=== PATIENT | male | born 2000 | race African-American/Black ===

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

== ENCOUNTER 2021-01-27 09:10 | Emergency (ER) | payer OTHER ==
[~2021-01-27] VITALS: Ht 170.2 cm; Wt 63.0 kg
[~2021-01-27 09:10] MED LIST changes: +ALBU2.5V8 IH; +ALBU2.5V8 INH; +PRED50TA PO; -PROAIR HFA8.5 GM IH
[2021-01-27] MEDS ORDERED: IV NORMAL SALINE 1000ML BAG 1,000 ML IV ONE (10:30)
--- NOTE | 2021-01-27 10:51 | RAD ---
AP chest. HISTORY: Tachycardia, cough, fever, short of breath AP view was taken of the chest. There is a left perihilar infiltrate, mass is possible. Follow-up wou ld be of benefit. Right lung is clear. IMPRESSION: 1. Left perihilar infiltrate. Electronically signed by: Rah Jara MD (01/27/2021 10:49 AM) [facility]
[2021-01-27] MEDS ORDERED: ACETAMINOPHEN 500 MG TABLET PO ONE (11:00)
[2021-01-27] MEDS ORDERED: KETOROLAC 30 MG/ML VIAL. IVP ONE (11:00)
[2021-01-27 11:28] LABS: BASO % 0 % (0-3); EOS % 0 % (0-3); HEMATOCRIT 39.8 % (39.0-53.0); HEMOGLOBIN 13.3 g/dL (13.0-17.5); LYMPH % 8 % (24-48); MEAN CORPUSCULAR HEMOGLOBIN 27 pg (25-35); MEAN CORPUSCULAR HGB CONC 34 g/dL (31-37); MEAN CORPUSCULAR VOLUME 79 fL (79-100); MONO # 1.4 x10^3/uL (0.0-1.1); MONO % 10 % (0-9); NEUT # 10.6 x10^3/uL (1.8-7.7); NEUT % 81 % (31-73); PLATELET COUNT 260 x10^3/uL (140-400); RED BLOOD COUNT 5.03 x10^6/uL (4.30-5.70); RED CELL DISTRIBUTION WIDTH 14.7 % (11.5-14.5); WHITE BLOOD COUNT 13.1 x10^3/uL (4.0-11.0)
[2021-01-27] MEDS ORDERED: AMOXICILLIN/K CLAV 875/125MG TABLET. PO ONE (11:30)
[2021-01-27 11:33] LABS: CALCIUM 8.9 mg/dL (8.5-10.1); CREATININE 1.3 mg/dL (0.7-1.3); GFR 84.3; POTASSIUM 3.9 mmol/L (3.5-5.1)
[2021-01-27 11:39] LABS: ALBUMIN 3.6 g/dL (3.4-5.0); ALBUMIN/GLOBULIN RATIO 0.8 (1.0-1.7); TOTAL BILIRUBIN 0.3 mg/dL (0.2-1.0); TOTAL PROTEIN 7.9 g/dL (6.4-8.2)
--- NOTE | 2021-01-27 12:09 | EKG ---
[facility] [address] [place] [address] Test Date: 2021-01-27 Test Time: 10:08:43 Pat Name: TAMARA KEY Department: Room: Gender: M Research Electrician: : 2000 Requested By: TAMARA MOCK Order Number: [id number] Reading MD: Measurements Intervals [place] Rate: 127 P: 90 CT: 114 QRS: 69 QRSD: 82 T: 43 QT: 276 QTc: 406 Interpretive Statements No previous ECG available for comparison
[2021-01-27] MEDS ORDERED: AZIT250T PO (12:30)
[2021-01-27] MEDS ORDERED: AMOX1TAB61 PO (12:30)
--- NOTE | 2021-01-27 12:31 | PHYS DOC ---
Past Medical History Past Medical History: Asthma, Other Additional Past Medical Histor: ECZEMA (TAMARA MOCK APRN) Past Surgical History: Other Additional Past Surgical Histo: L knee ACL 08/12/17 (TAMARA MOCK APRN) Smoking Status: Never Smoker Alcohol Use: Rarely Drug Use: None (TAMARA MOCK APRN) General Adult EDM: Chief Complaint: SHORTNESS OF BREATH HPI: HPI: Patient is a 20 year old male presents emergency department reporting fever, nonproductive cough, sore throat since this past . Patient reports a fever this morning of 102.0 oral temp, did not take any medications for his fever at home. Patient reports he is an asthmatic and has been using his inhaler several times over the past few days. Patient states he does not feel like he is having an asthma attack he just feels "bad ". Patient denies chest pain, chest congestion, nasal congestion, nausea, vomiting, or diarrhea. Patient denies anyone else in his home having the same symptoms as he. Patient denies receiving the COVID-19 virus vaccination series. Patient denies any other physical complaints or physical concerns. (TAMARA MOCK APRN) Review of Systems: Review of Systems: 14 body systems of review of systems have been reviewed. See HPI for pertinent positives and negative responses, otherwise all other systems are negative, nonpertinent or noncontributory. Constitutional: Negative except as outlined in HPI above. Skin: Negative except as outlined in HPI above. Eyes: Negative except as outlined in HPI above. HENT: Negative except as outlined in HPI above. Respiratory: Negative except as outlined in HPI above. Cardiovascular: Negative except as outlined in HPI above. GI: Negative except as outlined in HPI above. : Negative except as outlined in HPI above. Musculoskeletal: Negative except as outlined in HPI above. Integument: Negative except as outlined in HPI above. Neurologic: Negative except as outlined in HPI above. Endocrine: Negative except as outlined in HPI above. Lymphatic: Negative except as outlined in HPI above. Psychiatric: Negative except as outlined in HPI above. (TAMARA MOCK APRN) Heart Score: C/O Chest Pain: No Risk Factors: Risk Factors: DM, Current or recent (<one month) smoker, HTN, HLP, family history of CAD, obesity. Risk Scores: Score 0 - 3: 2.5% MACE over next 6 weeks - Discharge Home Score 4 - 6: 20.3% MACE over next 6 weeks - Admit for Clinical Observation Score 7 - 10: 72.7% MACE over next 6 weeks - Early Invasive Strategies (TAMARA MOCK APRN) Current Medications: Current Medications Medications (Trade) Dose Ordered Sig/Baldemar Start Time Stop Time Status Last Admin Dose Admin Acetaminophen (Tylenol) 1,000 mg 1X ONCE 01/27/21 11:00 01/27/21 11:01 DC 01/27/21 11:04 1,000 MG Amoxicillin/ Clavulanate Potassium (Augmentin 875/ 125mg) 1 tab 1X ONCE 01/27/21 11:30 01/27/21 11:31 DC Ketorolac Tromethamine (Toradol 30mg Vial) 30 mg 1X ONCE 01/27/21 11:00 01/27/21 11:01 DC 01/27/21 11:02 30 MG Sodium Chloride 1,000 ml @ 1,000 mls/hr 1X ONCE 01/27/21 10:30 01/27/21 11:29 DC 01/27/21 11:01 1,000 MLS/HR (TAMARA MOCK APRN) Allergies: Allergies: Allergies Coded Allergies Type Severity Reaction Last Updated Verified No Known Drug Allergies 01/27/21 No (TAMARA MOCK APRN) Physical Exam: PE: Constitutional: Well developed, well nourished, no acute distress, non-toxic appearance. 20-year-old male in no apparent distress. HENT: Normocephalic, atraumatic. No lymphadenopathy of the head or neck appreciated, bilateral TMs within normal limits, mild peritonsillar erythema without cobblestoning, without exudative drainage, no postnasal drip, no laryngeal edema, patient speaking in normal voice tones. Eyes: Conjunctiva normal, no discharge. Neck: Normal range of motion, no stridor. No meningismus signs, no nuchal rigidity. Cardiovascular: No cyanosis appreciated, distal cap refill less than 2 seconds. Lungs & Thorax: Patient is in no respiratory distress, no audible adventitious lung sounds appreciated. Lung sounds clear to auscultation all lung driver. Abdomen: Nontender, no abnormalities noted. Skin: Warm, dry, no erythema, no rash. Back: No tenderness, no deformities. Extremities: No tenderness, no cyanosis, no clubbing, ROM intact, no edema. Neurologic: Alert and oriented X 3, normal motor function, normal sensory function, no focal deficits noted. Psychologic: Affect normal, judgement normal, mood normal. (TAMARA MOCK APRN) Current Patient Data: Labs: Laboratory Tests Test 01/27/21 10:27 01/27/21 10:57 SARS-CoV-2 Antigen (Rapid) Negative (NEGATIVE) Group A Streptococcus Rapid Negative (NEGATIVE) White Blood Count 13.1 x10^3/uL (4.0-11.0) H Red Blood Count 5.03 x10^6/uL (4.30-5.70) Hemoglobin 13.3 g/dL (13.0-17.5) Hematocrit 39.8 % (39.0-53.0) Mean Corpuscular Volume 79 fL (79-100) Mean Corpuscular Hemoglobin 27 pg (25-35) Mean Corpuscular Hemoglobin Concent 34 g/dL (31-37) Red Cell Distribution Width 14.7 % (11.5-14.5) H Platelet Count 260 x10^3/uL (140-400) Neutrophils (%) (Auto) 81 % (31-73) H Lymphocytes (%) (Auto) 8 % (24-48) L Monocytes (%) (Auto) 10 % (0-9) H Eosinophils (%) (Auto) 0 % (0-3) Basophils (%) (Auto) 0 % (0-3) Neutrophils # (Auto) 10.6 x10^3/uL (1.8-7.7) H Lymphocytes # (Auto) 1.0 x10^3/uL (1.0-4.8) Monocytes # (Auto) 1.4 x10^3/uL (0.0-1.1) H Eosinophils # (Auto) 0.0 x10^3/uL (0.0-0.7) Basophils # (Auto) 0.0 x10^3/uL (0.0-0.2) Sodium Level 138 mmol/L (136-145) Potassium Level 3.9 mmol/L (3.5-5.1) Chloride Level 100 mmol/L (98-107) Carbon Dioxide Level 28 mmol/L (21-32) Anion Gap 10 (6-14) Blood Urea Nitrogen 10 mg/dL (8-26) Creatinine 1.3 mg/dL (0.7-1.3) Estimated GFR (Cockcroft-Gault) 84.3 BUN/Creatinine Ratio 8 (6-20) Glucose Level 85 mg/dL (70-99) Calcium Level 8.9 mg/dL (8.5-10.1) Total Bilirubin 0.3 mg/dL (0.2-1.0) Aspartate Amino Transferase (AST) 24 U/L (15-37) Alanine Aminotransferase (ALT) 23 U/L (16-63) Alkaline Phosphatase 66 U/L (46-116) Troponin I Quantitative < 0.017 ng/mL (0.000-0.055) Total Protein 7.9 g/dL (6.4-8.2) Albumin 3.6 g/dL (3.4-5.0) Albumin/Globulin Ratio 0.8 (1.0-1.7) L Laboratory Tests 01/27/21 10:57 Laboratory Tests 01/27/21 10:57 Vital Signs: Vital Signs Date Time Temp Pulse Resp B/P (MAP) Pulse Ox O2 Delivery O2 Flow Rate FiO2 01/27/21 11:10 116 24 137/65 (89) 98 Room Air 01/27/21 09:50 103.1 103.1 (TAMARA MOCK APRN) EKG: EKG: EKG performed at 1008 by ED nursing staff shows a sinus tachycardia without other ectopy, heart rate 127 bpm, MA interval 0.114, QTc interval 0.406, no acute STEMI, no ACS, no acute ischemia appreciated, EKG interpreted by ED attending physician Dr. Stout. (TAMARA MOCK APRN) Radiology/Procedures: Radiology/Procedures: PATIENT: TAMARA KEY ACCOUNT: [id number] : 2000 LOCATION: ER AGE: 20 SEX: M EXAM STATUS: REG ER ORD. PHYSICIAN: TAMARA MOCK APRN REASON: Tachycardia, cough, fever, short of breath PROCEDURE: CHEST AP ONLY AP chest. HISTORY: Tachycardia, cough, fever, short of breath AP view was taken of the chest. There is a left perihilar infiltrate, mass is possible. Follow-up would be of benefit. Right lung is clear. IMPRESSION: 1. Left perihilar infiltrate. Electronically signed by: Rah Jara MD (01/27/2021 10:49 AM) [facility] (TAMARA MOCK APRN) Course & Med Decision Making: Course & Med Decision Making Pertinent Labs and Imaging studies reviewed. (See chart for details) 20-year-old male, vital signs reviewed, presents to the emergency department concerning flulike signs and symptoms since this past . Physical examination concerning for viral syndrome versus strep pharyngitis versus atypical pneumonia. Will order cardiorespiratory work-up. Tylenol p.o and 30 mg Toradol IV. for fever of 103.0, 1 L normal saline. The patient's EKG is unremarkable, cardiac enzymes negative, patient's chest x- ray concerning for left hilar infiltrate, will treat for community-acquired pneumonia, will start on Augmentin in the emergency department today, will write prescription for outpatient treatment with Augmentin and azithromycin, patient's Covid test rapid negative, rapid strep negative. Discussed findings with patient, discussed outpatient home treatment for community-acquired pneumonia, strict follow-up with primary care this week for reevaluation and ongoing treatment, patient is amenable to ED discharge planning. Discussed with the patient all findings and diagnostic testing as well as the need to follow-up with their primary care provider for further evaluation and treatment or return to the ED if any new or worsening symptoms. Strict return precautions were also discussed at length, the patient voiced understanding and agreement with the discharge planning. The patient was nontoxic in appearance, in no apparent distress, and hemodynamically stable at the time of disposition. Patient is asthmatic, will treat for complicated community-acquired pneumonia outpatient. Augmentin, azithromycin 5-day regimen p.o. Patient's heart rate is 96 upon reevaluation and disposition time. (TAMARA MOCK APRN) Emiron Disclaimer: Dragon Disclaimer: This electronic medical record was generated, in whole or in part, using a voice recognition dictation system. (TAMARA MOCK APRN) Departure Departure Impression: Primary Impression: Community acquired pneumonia Qualified Codes: J18.9 - Pneumonia, unspecified organism Disposition: HOME / SELF CARE / HOMELESS Condition: GOOD Referrals: NO PCP (PCP) Patient Instructions: Pneumonia, Adult Additional Instructions: You were seen today in the emergency department for fever at home along with cough and sore throat. A full cardiorespiratory work-up was done in the emergency department today, your chest x-ray did not show any pneumonia as we discussed, I have started you on your first dose of oral antibiotic here. I am prescribing you antibiotics that you will take over the next 5 days at home. Please follow-up with your primary care physician this week for a reevaluation of your pneumonia. Please return to the emergency department for worsening symptoms, increased shortness of breath, uncontrolled fevers at home, or other concerns. You may use [id number] Tylenol and or Motrin for recurrent fevers. Thank you for visiting our Emergency Department. It was a pleasure taking care of you today in the emergency department and we appreciate you trusting us with your care. If any additional problems come up don't hesitate to return to visit us. Please follow up with your primary care provider so they can plan additional care if needed and know about the problem that you had. If symptoms worsen come back to the Emergency Department. Any concerning symptoms that start such as chest pain, shortness of air, weakness or numbness on one side of the body, running high fevers or any other concerning symptoms return to the ER. EMERGENCY DEPARTMENT GENERAL DISCHARGE INSTRUCTIONS Thank you for coming to [facility] Emergency Department (ED) today and trusting us with you care. We trust that you had a positive experience in our Emergency Department. If you wish to speak to the department management, you may call the Director at [phone]. YOUR FOLLOW UP INSTRUCTIONS ARE FOLLOWS: 1. Do you have a private Doctor? If you do not have a private doctor, please ask for a resource list of physicians or clinics that may be able to assist you with follow up care. 2. The Emergency Physicain has interpreted your x-rays. The X-Ray specialist will also review them. If there is a change in the findings, you will be notified in 48 hours when at all possible. 3. A lab test or culture has been done, your results will be reviewed and you will be notified if you need a change in treatment. ADDITIONAL INSTRUCTIONS AND INFORMATION: 1. Your care today has been supervised by a physician who is specially trained in emergency care. Many problems require more than one evaluation for a complete diagnosis and treatment. We recommend that you schedule your follow up appointment as recommended to ensure complete treatment of you illness or injury. If you are unable to obtain follow up care and continue to have a problem, or if your condition worsens, we recommend that you return to the ED. 2. We are not able to safely determine your condition over the phone nor are we able to give sound medical advice over the phone. For these safety reasons, if you call for medical advice we will ask you to come to the ED for further evaluation. 3. If you have any questions regarding these discharge instructions please call the ED at [phone]. SAFETY INFORMATION: In the interest of safety, wellness, and injury prevention; we encourage you to wear your sealbelt, if you smoke; quite smoking, and we encourage family to use a protective helmet for bicycling and other sporting events that present an increased risk for head injury. IF YOUR SYMPTOMS WORSEN OR NEW SYMPTOMS DEVELOP, OR YOU HAVE CONCERNS ABOUT YOUR CONDITION; OR IF YOUR CONDITION WORSENS WHILE YOU ARE WAITING FOR YOUR FOLLOW UP APPOINTMENT; EITHER CONTACT YOUR PRIMARY CARE DOCTOR, THE PHYSICIAN WHOSE NAME AND NUMBER YOU WERE GIVEN, OR RETURN TO THE ED IMMEDIATELY. Scripts Azithromycin (ZITHROMAX) 250 Mg Tablet 1 PKG PO UD for pneumonia, #6 TAB Prov: TAMARA MOCK APRN 01/27/21 Amoxicillin/Potassium Clav (AUGMENTIN 875-125 TABLET) 1 Each Tablet 1 TAB PO BID for pneumonia for 5 Days, #10 TAB 0 Refills Prov: TAMARA MOCK APRN 01/27/21 Attending Signature Attending Signature I have reviewed the PA/AIR ROUTE TRAFFIC CONTROLLER's note and plan of care. I was available for consultation as needed during the patient's visit in the emergency department. I agree with the clinical impression, plan, and disposition. (TAMARA STOUT DO) TAMARA MOCK APRN Jan 27, 2021 12:31 TAMARA STOUT DO Jan 27, 2021 14:32
[2021-01-27 12:45] VITALS: BP 126/70
--- NOTE | 2021-01-28 18:11 | NUR ---
IP: Informed pt of negative covid test. Pt verbalized understanding.
== END 2021-01-27 12:45 | disposition home or self-care (01) ==
LOC: ER 09:10
DX: J18.9 Pneumonia, unspecified organism (principal); Z20.822 Contact with and (suspected) exposure to COVID-19; J45.909 Unspecified asthma, uncomplicated
CPT/HCPCS: 36415; 71045; 80053; 84484; 85025; 87040; 87070; 87147; 87426; 87880; 93005; 96361; 96374; 99285; J1885; J7030; U0003; U0005